=== PATIENT | female | born 1975 | race African-American/Black ===

== ENCOUNTER 2016-07-01 09:18 | Day surgery (SDC) | payer BC ==
[2016-06-30 17:05] LABS: ABSOLUTE EOSINOPHILS # (AUTO) 0.1 10^3/uL (0.0-0.6); ABSOLUTE LYMPHOCYTES (AUTO) 2.5 10^3/uL (0.5-4.7); ABSOLUTE MONOCYTES (AUTO) 0.5 10^3/uL (0.1-1.4); ABSOLUTE NEUT (AUTO) 1.4 10^3/uL (1.7-8.2); BASOPHILS % (AUTO) 0.6 % (0-2); EOSINOPHILS % (AUTO) 1.4 % (0-6); HEMATOCRIT 36.1 % (36.0-47.0); HEMOGLOBIN 12.4 g/dL (12.0-15.5); HGB HCT DIFFERENCE 1.1; LYMPHOCYTES % (AUTO) 55.8 % (13-45); MEAN CORPUSCULAR HGB CONC 34.3 g/dL (32.0-36.0); MEAN CORPUSCULAR VOLUME 90 fl (80-97); MONOCYTES % (AUTO) 10.6 % (3-13); RED BLOOD COUNT 3.99 10^6/uL (3.72-5.28); RED CELL DISTRIBUTION WIDTH 13.5 % (11.5-14.0); SEGMENTED NEUTROPHILS % (AUTO) 31.6 % (42-78); WHITE BLOOD COUNT 4.6 10^3/uL (4.0-10.5)
[2016-06-30 17:18] LABS: APPEARANCE,URINE CLOUDY; BILIRUBIN,URINE NEGATIVE (NEGATIVE); GLUCOSE, URINE NEGATIVE (NEGATIVE); KETONES,URINE NEGATIVE (NEGATIVE); LEUKOCYTE ESTERASE,URINE SMALL (NEGATIVE); NITRITE,URINE NEGATIVE (NEGATIVE); PROTEIN,URINE NEGATIVE (NEGATIVE); URINE SPECIFIC GRAVITY 1.004; UROBILINOGEN,URINE NEGATIVE mg/dL (<2.0)
[~2016-07-01 09:18] MED LIST: CLINDAMYCIN 600 MG/D5W RTU 600 MG/50 ML RTUPB IV PRN
[2016-07-01] MEDS ORDERED: LIDOCAINE 2% INJ (20 MG/ML) 20 ML MDV ONE (09:51)
[2016-07-01] MEDS ORDERED: DIPHENHYDRAMINE HCL 50 MG/ML VIAL ONE ×2 (09:51→10:11)
[2016-07-01] MEDS ORDERED: MIDAZOLAM 2 MG/2 ML INJ ONE (10:11)
[2016-07-01] MEDS ORDERED: FENTANYL CITRATE INJ/PF 100 MCG/2 ML AMPUL ONE ×2 (10:12)
[2016-07-01] MEDS ORDERED: PROPOFOL INJ 200 MG/20 ML VIAL IV ONE (10:12)
[2016-07-01] MEDS ORDERED: LIDOCAINE 2% INJ-PF (20 MG/ML) 10 ML AMPUL ONE (10:12)
[2016-07-01] MEDS ORDERED: KETOROLAC TROMETHAMINE 60 MG/2 ML SDV ONE (10:12)
[2016-07-01] MEDS ORDERED: BUPIVACAINE HCL 0.5 % INJ/PF 30 ML SDV ONE (10:12)
[2016-07-01] MEDS ORDERED: ONDANSETRON HCL INJ/PF 4 MG/2 ML SDV ONE (10:46)
--- NOTE | 2016-07-01 13:03 | SURGICARE OPERATIVE REPORT E ---
[facility] NAME: GALEN SHABAZZ AGE: 41Y DATE OF SURGERY: ROOM: PREOPERATIVE DIAGNOSIS: Hallux abductovalgus deformity left foot. POSTOPERATIVE DIAGNOSIS: Hallux abductovalgus deformity left foot. PROCEDURE PERFORMED: Addi osteotomy first metatarsal with external fixation, left foot. SURGEON: CHELY FISHER DPM. INTRAOPERATIVE FINDINGS: Intraoperative findings indicated dislocation of the first metatarsophalangeal joint, medial deviation of the first metatarsal, and lateral deviation of the hallux. Hypertrophy of the medial eminence of the head of the first metatarsal was present. The articular facet of the head of the first metatarsal and the base of the proximal phalanx were in good condition. Intraoperative findings were confirmed clinically and radiographically. PROCEDURE: With the patient lying in the dorsal recumbent position, the left foot and leg were prepped and draped in the usual standard sterile orthopedic manner after the local anesthesia was administered, which was a total ankle block. After the anesthetic effect was accomplished, the left leg was elevated for approximately 2 minutes' of time and the left ankle pneumatic tourniquet was inflated up to 250 mmHg after the blood was exsanguinated from the left foot. The left leg was brought to the level of the table. Attention was directed right over the first metatarsophalangeal joint. A curvilinear incision was placed right over the joint. The initial incision was deepened. The superficial and deep subcutaneous tissues were dissected via blunt and sharp dissection. This dissection was carried until the capsular structures were brought into the surgical field. By this time, all bleeders were ligated and all vital structures were identified and protected from surgical trauma. Next, the L inverted capsulotomy was performed. The long arm of the capsulotomy was medial and adjacent. The extensor hallucis longus tendon and the short arm was right over the joint and ran in a medial inferior direction. Capsular and periosteal structures were dissected of bone and the head of the first metatarsal was brought into the surgical field. At this point the hypertrophic portion of the medial eminence of the head of the first metatarsal was resected and the head was remodeled to a more normal anatomical configuration. At this point, the osteotomy to be performed was mapped on the bone. It was executed in the sagittal plan from medial to lateral direction. It was a bjqgwyf-ncs-pgnrnap osteotomy and it was a chevron type of osteotomy. The apical portion was facing the joint and the arms were angulated to one another of about 45 degrees. After the osteotomy was performed, the head of the first metatarsal was shifted lateral arrington and compacted from the distal shaft. With the head in its new anatomical position, it was externally fixated with 0.062 K-wire. The wire ran from medial proximal to lateral distal direction. It crossed the osteotomy and impacted it, and precaution was taken not to have the wire protruding into the joint. After the fixation of the osteotomy the protruding wedge of bone, which was created after shifting the first metatarsal head on the medial distal aspect of the first metatarsal was resected at this time. Next intraoperative x-rays were obtained to document the correction and the fixation of the first metatarsal and both were extremely satisfactory. At this point, a left ankle pneumatic tourniquet was deflated. Circulation returned to normal immediately, as the normal digital color and temperature became apparent. Next, the surgical site was irrigated with copious amounts of sterile saline solution and the capsule structures were closed with 2-0 Vicryl. The subcutaneous tissues from deep to superficial were closed with 3-0 Vicryl, the skin edges were repositioned and closed with 4-0 nylon in continuous interlocked stitch. Then the K-wire was cut short so it can be incorporated at the surgical area and the surgical dressing and a Jurgan ball was placed at the tip of the wire to prevent the wire from tearing the surgical dressings postoperatively. Next the Betadine compression dressing was applied around the left foot, which was followed with an Devyn bandage and a surgical shoe. This patient tolerated the procedures well and left the operating room with stable vital signs and in good condition. The patient was taken to the recovery room alert, conscious and oriented. There are no permanent disabilities anticipated at this time. DICTATING PHYSICIAN: CHELY FISHER D.P.M. [id number] PHY#: [id number] ID: [id number] JOB#: [id number] ACCT: [id number] cc:CHELY FISHER D.P.M. >
== END 2016-07-01 13:21 | disposition home or self-care (01) ==
LOC: SC 09:18
PROVIDERS: ATTEND Podiatrist Foot & Ankle Surgery
PROC: 0QBP0ZZ Excision of Left Metatarsal, Open Approach (ICD-10-PCS; principal; 2016-07-01 10:30)
DX: M20.12 Hallux valgus (acquired), left foot (principal); M10.9 Gout, unspecified; M06.9 Rheumatoid arthritis, unspecified; K21.9 Gastro-esophageal reflux disease without esophagitis; Z79.899 Other long term (current) drug therapy; Z87.891 Personal history of nicotine dependence; Z88.8 Allergy status to other drugs, medicaments and biological substances
CPT/HCPCS: 28296; 36415; 85025; 81001; 73620; C1713; J2250; J3490 ×2; J1200; J1885; J3010; J2405; J2704; 01480

== ENCOUNTER 2018-09-25 13:21 | Emergency (ER) | payer BC ==
--- NOTE | 2018-09-25 13:55 | ER Document Report ---
ED Medical Screen (RME) - General Chief Complaint: Vaginal Bleeding Stated Complaint: VAGINAL BLEEDING AND PAIN Time Seen by Provider: 09/25/18 13:49 Primary Care Provider: LAZARO SINGH [Primary Care Provider] - Follow up as needed Mode of Arrival: Ambulatory Information source: Patient TRAVEL OUTSIDE OF THE [place] IN LAST 30 DAYS: No - HPI Patient complains to provider of: VAGINAL BLEEDING Notes: 09/25/18 13:54 Patient here with complaints of vaginal bleeding. The patient states she started her menstrual cycle on the fourth of this month and she is been bleeding ever since. States that last night she had a severe cramp and something that looked like a mucous plug came out. Bleeding seems to have lightened up today. No fevers. No nausea, vomiting, diarrhea. [facility] instructed her to come the emergency department to have this evaluated. Exam No distress, nontoxic-appearing. Lungs clear and equal throughout. Heart sounds normal. No focal abdominal tenderness on limited triage abdominal exam. Plan CBC, CMP, urine, , pelvic ultrasound. An initial examination was made on the patient as part of the triage process, and it was determined a more comprehensive evaluation was necessary. Initial labs were ordered and patient was transferred to another provider in the ED who assumed care and finished evaluation and plan. - Related Data Allergies/Adverse Reactions: ceftriaxone [From Rocephin] Allergy (Verified 09/25/18 13:22) Generalized Itching Past Medical History - Past Medical History Cardiac Medical History: Denies: Hx Heart Attack, Hx Hypertension Pulmonary Medical History: Denies: Hx Asthma Neurological Medical History: Denies: Hx Cerebrovascular Accident, Hx Seizures GI Medical History: Denies: Hx Hepatitis, Hx Hiatal Hernia, Hx Ulcer Infectious Medical History: Denies: Hx Hepatitis Past Surgical History: Denies: Hx Mastectomy, Hx Open Heart Surgery, Hx Pacemaker Physical Exam - Vital signs Vitals: Temp Pulse Resp BP Pulse Ox 97.7 F 107 H 18 150/93 H 99 09/25/18 13:24 09/25/18 13:24 09/25/18 13:24 09/25/18 13:24 09/25/18 13:24 Course - Vital Signs Vital signs: Temp Pulse Resp BP Pulse Ox 97.7 F 107 H 18 150/93 H 99 09/25/18 13:24 09/25/18 13:24 09/25/18 13:24 09/25/18 13:24 09/25/18 13:24 Doctor's Discharge - Discharge Referrals: LOCALMD,NO [Primary Care Provider] - Follow up as needed
[2018-09-25 14:20] LABS: ABSOLUTE LYMPHOCYTES (AUTO) 1.9 10^3/uL (0.5-4.7); ABSOLUTE MONOCYTES (AUTO) 0.4 10^3/uL (0.1-1.4); ABSOLUTE NEUT (AUTO) 1.9 10^3/uL (1.7-8.2); BASOPHILS % (AUTO) 0.8 % (0-2); HEMATOCRIT 37.9 % (36.0-47.0); HEMOGLOBIN 12.7 g/dL (12.0-15.5); LYMPHOCYTES % (AUTO) 44.5 % (13-45); MEAN CORPUSCULAR HEMOGLOBIN 30.1 pg (27.0-33.4); MEAN CORPUSCULAR HGB CONC 33.4 g/dL (32.0-36.0); MEAN CORPUSCULAR VOLUME 90 fl (80-97); MONOCYTES % (AUTO) 9.2 % (3-13); PLATELET COUNT 278 10^3/uL (150-450); RED CELL DISTRIBUTION WIDTH 13.2 % (11.5-14.0); SEGMENTED NEUTROPHILS % (AUTO) 44.5 % (42-78); TOTAL CELLS COUNTED % (AUTO) 100 %; WHITE BLOOD COUNT 4.2 10^3/uL (4.0-10.5)
[2018-09-25 14:25] LABS: APPEARANCE,URINE CLEAR; BILIRUBIN,URINE NEGATIVE (NEGATIVE); COLOR,URINE COLORLESS; GLUCOSE, URINE NEGATIVE (NEGATIVE); KETONES,URINE NEGATIVE (NEGATIVE); LEUKOCYTE ESTERASE,URINE NEGATIVE (NEGATIVE); NITRITE,URINE NEGATIVE (NEGATIVE); PROTEIN,URINE NEGATIVE (NEGATIVE); URINE SPECIFIC GRAVITY 1.001; UROBILINOGEN,URINE NEGATIVE mg/dL (<2.0)
[2018-09-25 14:41] LABS: ALANINE AMINOTRANSFERASE 26 U/L (9-52); ALBUMIN 4.4 g/dL (3.5-5.0); ALKALINE PHOSPHATASE 56 U/L (38-126); ANION GAP 10 (5-19); ASPARTATE AMINO TRANSFERASE 22 U/L (14-36); BILIRUBIN,DIRECT 0.2 mg/dL (0.0-0.4); BILIRUBIN,TOTAL 0.2 mg/dL (0.2-1.3); BLOOD UREA NITROGEN 9 mg/dL (7-20); CALCIUM 10.2 mg/dL (8.4-10.2); CARBON DIOXIDE 30 mmol/L (22-30); CHLORIDE 103 mmol/L (98-107); GLUCOSE 88 mg/dL (75-110); POTASSIUM 3.9 mmol/L (3.6-5.0); SODIUM 142.8 mmol/L (137-145); TOTAL PROTEIN 7.6 g/dL (6.3-8.2)
--- NOTE | 2018-09-25 15:38 | RADIOLOGY REPORT (SQ) ---
EXAM DESCRIPTION: U/S NON OB PEL TV W/DOPPLER COMPLETED DATE/TIME: 09/25/2018 3:27 pm REASON FOR STUDY: VAGINAL BLEEDING LMP 09/08/2018 COMPARISON: None. TECHNIQUE: Dynamic and static grayscale images acquired of the pelvis via transvaginal approach and recorded on PACS. Additional selected color Doppler and spectral images recorded. LIMITATIONS: None. FINDINGS: UTERUS: Contour normal. No mass. ENDOMETRIAL STRIPE: There are some small echogenic foci within the endometrium. The largest measures 8 mm in largest diameter. CERVIX: 1.7 cm. No nabothian cysts. RIGHT OVARY AND DOPPLER: Normal size. Normal arterial vascular flow without evidence for torsion. Q uestionable 21 mm solid mass in the right ovary. LEFT OVARY AND DOPPLER: Normal size. No worrisome masses. Normal arterial vascular flow without evide nce for torsion. FREE FLUID: None noted. OTHER: No other significant finding. MEASUREMENTS: UTERUS: 7.6 x 5.6 x 5.1 cm. ENDOMETRIAL STRIPE: 10 mm. RIGHT OVARY: 3.9 x 3.1 x 3.7 cm. LEFT OVARY: 2.7 x 2.5 x 1.9 cm. IMPRESSION: 1. Possible endometrial polyps. 2. Questionable 21 mm solid mass in the right ovary. TECHNICAL DOCUMENTATION: JOB ID: [id number] [employer]- All Rights Reserved Rev-09/22 Reading location - IP/workstation name: [email or web address]
--- NOTE | 2018-09-25 17:22 | ER Document Report ---
ED General - General Chief Complaint: Vaginal Bleeding Stated Complaint: VAGINAL BLEEDING AND PAIN Time Seen by Provider: 09/25/18 13:49 Primary Care Provider: LAZARO SINGH [NO LOCAL MD] - Follow up as needed Mode of Arrival: Ambulatory TRAVEL OUTSIDE OF THE [place] IN LAST 30 DAYS: No - HPI Notes: Patient is a 43-year-old female that presents to the emergency department for chief complaint of vaginal bleeding. Patient reports menstrual cycle started on 09/08/2018 and has continued since. She states that was a normal time for her cycle to start in the initial 4 to 5 days was a normal period. The bleeding has slowed down but has not stopped at all. She states it is minimal and bright red. Yesterday she passed a large clot and was concerned she may have had a miscarriage. She does have a history of tubal ligation in the past. She denies any abdominal pain, fever, chills, constipation, diarrhea and pelvic pain. [facility]. She denies history of abnormal uterine bleeding in the past. Past Medical History: Negative Past Surgical History: Adhesional lysis, tubal ligation, bilateral foot bunion removal Social History: Denies drugs alcohol and tobacco Family History: Reviewed and noncontributory for presenting illness Allergies: Reviewed, see documented allergy list. REVIEW OF SYSTEMS: CONSTITUTIONAL : No fever No chills No diaphoresis No recent illness EENT: No vision changes No congestion No sore throat CARDIOVASCULAR: No chest pain No palpitations RESPIRATORY: No shortness of breath No cough No difficulty breathing GASTROINTESTINAL: No abdominal pain No nausea No vomiting No diarrhea GENITOURINARY: Vaginal bleeding No dysuria No hematuria No difficulty urinating MUSCULOSKELETAL: No back pain No leg pain No arm pain SKIN: No rashes No lesions LYMPHATIC: No swollen, enlarged glands. NEUROLOGICAL: No lightheadedness No headache No weakness No paresthesias PSYCHIATRIC: No anxiety No depression PHYSICAL EXAMINATION: Vital signs reviewed, nursing noted reviewed. GENERAL: Well-appearing, well-nourished and in no acute distress. HEAD: Atraumatic, normocephalic. EYES: Eyes appear normal, extraocular movements intact, sclera anicteric, conjunctiva are normal. ENT: nares patent, oropharynx clear without exudates. Moist mucous membranes. NECK: Normal range of motion, supple without lymphadenopathy LUNGS: Breath sounds clear to auscultation bilaterally and equal. No wheezes rales or rhonchi. HEART: Regular rate and rhythm without murmurs ABDOMEN: Soft, nontender, normoactive bowel sounds. No rebound, guarding, or rigidity. No masses appreciated. EXTREMITIES: Nontender, good range of motion, no pitting or edema. NEUROLOGICAL: No focal neurological deficits. Moves all extremities s pontaneously Motor and sensory grossly intact on exam. PSYCH: Normal mood, normal affect. SKIN: Warm, Dry, normal turgor, no rashes or lesions noted on exposed skin - Related Data Allergies/Adverse Reactions: ceftriaxone [From Rocephin] Allergy (Verified 09/25/18 13:22) Generalized Itching Past Medical History - General Information source: Patient Last Menstrual Period: september 08 - Social History Smoking Status: Never Smoker Chew tobacco use (# tins/day): No Drug Abuse: None Family History: Reviewed & Not Pertinent Patient has suicidal ideation: No Patient has homicidal ideation: No - Past Medical History Cardiac Medical History: Denies: Hx Heart Attack, Hx Hypertension Pulmonary Medical History: Denies: Hx Asthma Neurological Medical History: Denies: Hx Cerebrovascular Accident, Hx Seizures Renal/ Medical History: Denies: Hx Peritoneal Dialysis GI Medical History: Denies: Hx Hepatitis, Hx Hiatal Hernia, Hx Ulcer Infectious Medical History: Denies: Hx Hepatitis Past Surgical History: Reports: Hx Tubal Ligation. Denies: Hx Mastectomy, Hx Open Heart Surgery, Hx Pacemaker Physical Exam - Vital signs Vitals: Temp Pulse Resp BP Pulse Ox 97.7 F 107 H 18 150/93 H 99 09/25/18 13:24 09/25/18 13:24 09/25/18 13:24 09/25/18 13:24 09/25/18 13:24 Course - Re-evaluation Re-evalutation: 09/25/18 17:21 Vitals reviewed. Nursing notes reviewed. Patient is resting comfortably and in no acute distress. Her blood work shows no acute anemia. She has no electrolyte derangements or renal insufficiency. She does appear well-hydrated. She states her bleeding is minimal and she is not currently hemorrhaging. Patient's ultrasound shows endometrial polyps as well as a right ovarian mass. I did refer her to [facility] for follow-up of her ultrasound findings. She was counseled on return precautions. She is stable at discharge. Laboratory 09/25/18 09/25/18 09/25/18 14:06 14:06 14:06 WBC 4.2 RBC 4.20 Hgb 12.7 Hct 37.9 MCV 90 MCH 30.1 MCHC 33.4 RDW 13.2 Plt Count 278 Seg Neutrophils % 44.5 Lymphocytes % 44.5 Monocytes % 9.2 Eosinophils % 1.0 Basophils % 0.8 Absolute Neutrophils 1.9 Absolute Lymphocytes 1.9 Absolute Monocytes 0.4 Absolute Eosinophils 0.0 Absolute Basophils 0.0 Sodium 142.8 Potassium 3.9 Chloride 103 Carbon Dioxide 30 Anion Gap 10 BUN 9 Creatinine 0.71 Est GFR ( Amer) > 60 Est GFR (Non-Af Amer) > 60 Glucose 88 Calcium 10.2 Total Bilirubin 0.2 Direct Bilirubin 0.2 Neonat Total Bilirubin Not Reportable Neonat Direct Bilirubin Not Reportable Neonat Indirect Bili Not Reportable AST 22 ALT 26 Alkaline Phosphatase 56 Total Protein 7.6 Albumin 4.4 Urine Color COLORLESS Urine Appearance CLEAR Urine pH 7.0 Ur Specific [place] 1.001 Urine Protein NEGATIVE Urine Glucose (UA) NEGATIVE Urine Ketones NEGATIVE Urine Blood SMALL H Urine Nitrite NEGATIVE Urine Bilirubin NEGATIVE Urine Urobilinogen NEGATIVE Ur Leukocyte Esterase NEGATIVE Urine WBC (Auto) 0 Urine Bacteria (Auto) TRACE Squamous Epi Cells Auto 1 Urine Mucus (Auto) RARE Urine Ascorbic Acid NEGATIVE Urine HCG, Qual NEGATIVE Transvaginal US 09/25/18 13:53 IMPRESSION: 1. Possible endometrial polyps. 2. Questionable 21 mm solid mass in the right ovary. - Vital Signs Vital signs: Temp Pulse Resp BP Pulse Ox 98.6 F 95 16 129/88 H 100 09/25/18 16:24 09/25/18 16:24 09/25/18 16:24 09/25/18 16:24 09/25/18 16:24 - Laboratory Result Diagrams: 09/25/18 14:06 09/25/18 14:06 Laboratory results interpreted by me: 09/25/18 14:06 Urine Blood SMALL H Discharge - Discharge Clinical Impression: Ovarian mass, right, Vaginal bleeding, Uterine polyp Condition: Stable Disposition: HOME, SELF-CARE Instructions: Vaginal Bleeding ([facility]) Additional Instructions: Please return to the emergency department if you have any worsening, or concern of your symptoms. Please return to the emergency department if you develop chest pain, difficulty breathing, severe abdominal pain, or ongoing vomiting. Please follow-up with your primary care physician in 2-3 days and any other re commended physicians. If prescribed, take all medications as directed. If you have any questions or concerns do not hesitate to return the emergency department for evaluation. Your ultrasound today showed a mass on your right ovary which needs to be followed up with gynecology Referrals: LOCALMD,NO [NO LOCAL MD] - Follow up as needed [facility] [Provider Group] - Follow up in 3-5 days (Call tomorrow for appointment)
[2018-09-25 17:36] VITALS: BP 146/92
== END 2018-09-25 17:41 | disposition home or self-care (01) ==
LOC: ER 13:21
DX: N84.0 Polyp of corpus uteri (principal); N83.9 Noninflammatory disorder of ovary, fallopian tube and broad ligament, unspecified; N93.8 Other specified abnormal uterine and vaginal bleeding
CPT/HCPCS: 36415; 76830; 80053; 81001; 81025; 85025; 93976; 99284